=== PATIENT | male | born 1965 | race Caucasian/White ===

== ENCOUNTER 2020-08-28 14:04 | Observation (INO) ==
--- NOTE | 2020-08-28 14:30 | Emergency Department Note ---
Impression & Plan Atypical chest pain, Alcohol abuse ED Provider Note NAME: KATIANA MAYA JR AGE: 55 SEX: M : 1965 ARRIVES VIA: Ambulance INFORMANT: Patient, ED PROVIDER(S): Varinder Purdy MD Chief Complaint: Chest pain HPI: Patient did present with concern for chest pain and epigastric discomfort. The patient states he awoke at 6 AM this morning and had some epigastric discomfort had taken a Prilosec went back to bed. The patient subsequently got up took some Pepto-Bismol as he had some persistent discomfort. The patient states that this only mildly improved his symptoms and that he was getting to play golf and the patient did have diffuse chest tightness with associated nausea. The patient was picked up by EMS and given aspirin nitro in route. Patient states that this did improve his symptoms. Patient recently had 10 of 10 pain and now does feel fatigued and is currently 0 out of 10. Patient denies any fevers chills. The patient denies any active chest pains or shortness of breath. The patient denies any nausea or vomiting currently. Patient does endorse drinking 7-10 beers daily. No family history of heart attack or stroke in parents siblings before the age of 65. Patient is a non-smoker. No history of DVT or PE and the patient does not complain of any lower extremity swelling or infectious symptoms. Patient is not vaccinated for Covid. ROS: See HPI for pertinent positives and negatives. A total of 10 systems were reviewed and otherwise negative. Past medical history: See below Surgical history: See below Social history: See below Physical Exam: GENERAL: Wearing a mask. NAD, non-toxic. EYE EXAM: Normal conjunctiva. PERRL, no anisocoria and EOM's grossly intact w/o pain. NECK: Supple, no nuchal rigidity, no adenopathy, non-tender. No signs of meningismus. LUNGS: Clear to auscultation. Normal chest wall mechanics. HEART: NSR, no MRG. ABDOMEN: Abdomen soft, non-tender, normo-active bowel sounds, no masses, no rebound or guarding. BACK: No CVA TTP. SKIN: No rashes and no bruising. UPPER EXTREMITIES: Upper extremities are grossly normal. LOWER EXTREMITIES: Grossly normal, no edema. Negative Homans' sign bilaterally. NEURO EXAM: A&O x3, cranial nerves II-XII grossly intact, normal speech, moves all 4 extremities on command w/o issue. Differential diagnoses: Cardiac ischemia, aortic dissection, pulmonary embolism, pneumothorax, pneumonia, pericarditis, myocarditis, esophageal rupture, GERD, cholecystitis, pancreatitis, musculoskeletal, as well as other pathologies. Course: Patient was seen and evaluated the bedside. Full history physical exam was performed. EKG interpreted by me Normal sinus rhythm, rate of 61, normal intervals, normal axis, T wave inversion lead III, no ST elevations Imaging Studies: See below Cardiac monitoring: An order was placed for continuous cardiac monitoring. The monitor shows a rate of 78 with sinus rhythm. MDM: Patient did present with concerns for atypical chest pain. The patient did have chest discomfort associated diaphoresis and nausea. The patient did have improvement in symptoms after nitro and aspirin were given in route. The patient does not have any pain only current discomfort. Initially 10 out of 10. After further discussion with the patient the patient was hesitant to be admitted to the hospital given the concern for Covid although the patient does not want to be vaccinated. After discussing that it may be of benefit to get vaccinated if this is a concern he stated "I will take my chances." But after further discussion with the patient the patient is amenable for further evaluation and treatment. I did speak the on-call hospitalist and the patient was admitted by Dr. Azevedo. Patient was ordered a one-time dose of Ativan as the patient was having some mild tachycardia given the patient's chronic alcohol use this was to be used to avoid withdrawal type symptoms. 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 Beliefs That Will Affect Care: None Current Living Situation: Family Other Information That Helps Us Care for You: No Feels Safe at Home: Yes Safety Concerns: Feels Safe At This Time Assistive Devices: Glasses Allergies Allergies Allergy/AdvReac Type Severity Reaction Status Date / Time acetaminophen [From Tylenol] AdvReac Unknown Hives Verified 08/28/20 15:17 Home Meds Home Medications Medication Instructions Recorded Confirmed lisinopril 5 mg tablet 10 mg PO QAM 04/14/19 08/28/20 omeprazole magnesium 20 mg 20 mg PO DAILY PRN 08/28/20 08/28/20 tablet,delayed release (Prilosec OTC) Results & Data (ED) Vital Signs Vital Signs - 24 hr 08/28/20 14:15 08/28/20 14:17 08/28/20 14:30 Temperature 36.8 C Temperature Source Oral Pulse Rate 80 82 74 Pulse Rate from SpO2 Sensor 82 74 Respiratory Rate 18 20 17 Blood Pressure 141/89 H 141/89 H 130/88 Blood Pressure Mean 106 106 102 Pulse Oximetry 98 97 96 Oxygen Delivery Method Room Air Sepsis Recent Fever Within 48 Hours No Sepsis New/Unexplained Change in Mental Status No Sepsis Action Taken by Nursing No Action Required 08/28/20 15:00 08/28/20 15:09 08/28/20 16:00 Temperature Temperature Source Pulse Rate 82 79 Pulse Rate from SpO2 Sensor 83 88 Respiratory Rate 19 21 Blood Pressure 138/100 138/94 Blood Pressure Mean 112 108 Pulse Oximetry 97 98 98 Oxygen Delivery Method Room Air Sepsis Recent Fever Within 48 Hours Sepsis New/Unexplained Change in Mental Status Sepsis Action Taken by Nursing 08/28/20 16:30 08/28/20 17:00 08/28/20 17:30 Temperature Temperature Source Pulse Rate 78 80 101 H Pulse Rate from SpO2 Sensor 77 82 98 H Respiratory Rate 20 20 20 Blood Pressure 140/87 137/96 153/100 H Blood Pressure Mean 104 109 117 Pulse Oximetry 98 98 98 Oxygen Delivery Method Sepsis Recent Fever Within 48 Hours Sepsis New/Unexplained Change in Mental Status Sepsis Action Taken by Assisted Medications Current Medication List: was personally reviewed by me Laboratory Data Attestation: I reviewed the patient's lab results. Result diagrams: 08/28/20 13:43 08/28/20 13:43 Lab Results 08/28/20 08/28/20 08/28/20 Range/Units 13:43 13:43 15:02 WBC 5.68 (4.8-10.8) K/uL RBC 4.76 (4.7-6.1) M/uL Hgb 16.2 (14.0-18.0) g/dL Hct 45.7 (42-52) % MCV 96.0 (80-100) fL MCH 34.0 (25-34) pg MCHC 35.4 (32-36) g/dL RDW Std Deviation 43.1 (36.4-46.3) fL RDW Coeff of Kevon 12.2 (11.5-14.5) % Plt Count 257 (130-400) K/uL MPV 12.0 H (7.4-10.4) fL Immature Gran % (Auto) 0.4 % Neut % (Auto) 61.6 % Lymph % (Auto) 27.6 % Dewitt % (Auto) 8.6 % Eos % (Auto) 1.6 % Baso % (Auto) 0.2 % Neut # (Auto) 3.50 (1.4-6.5) K/uL Lymph # (Auto) 1.57 (1.2-3.4) K/uL Dewitt # (Auto) 0.49 (0.11-0.59) K/uL Eos # (Auto) 0.09 (0-0.5) K/uL Baso # (Auto) 0.01 (0-0.2) K/uL Immature Gran # (Auto) 0.02 (0.00-0.02) K/uL APTT (21.0-31.0) Seconds PTT Ratio Sodium 140 (136-145) mmol/L Potassium 4.4 (3.5-5.1) mmol/L Chloride 105 (98-107) mmol/L Carbon Dioxide 24 (21-32) mmol/L Anion Gap 11.0 (3-11) BUN 12 (7-18) mg/dl Creatinine 1.01 (0.6-1.4) mg/dl Est Cr Clr Drug Dosing 84.4 ml/min Est GFR ( Amer) 95.3 ml/min Est GFR (Non-Af Amer) 82.2 ml/min BUN/Creatinine Ratio 12.3 (10-20) Glucose 119 H (70-99) mg/dl Calcium 9.2 (8.5-10.1) mg/dl Total Bilirubin 0.4 (0.2-1) mg/dl AST 52 H (15-37) U/L ALT 91 H (12-78) U/L Alkaline Phosphatase 94 (45-117) U/L Troponin I < 0.015 (0-0.045) ng/ml Total Protein 8.1 (6.4-8.2) gm/dl Albumin 3.8 (3.4-5.0) gm/dl Globulin 4.3 H (2.5-4.0) gm/dl Albumin/Globulin Ratio 0.9 (0.9-2) Lipase 257 (73-393) U/L COVID-19 Eval Order Covid19 at [facility] SARS-CoV-2 (PCR) (Negative) 08/28/20 08/28/20 Range/Units 15:02 15:36 WBC (4.8-10.8) K/uL RBC (4.7-6.1) M/uL Hgb (14.0-18.0) g/dL Hct (42-52) % MCV (80-100) fL MCH (25-34) pg MCHC (32-36) g/dL RDW Std Deviation (36.4-46.3) fL RDW Coeff of Kevon (11.5-14.5) % Plt Count (130-400) K/uL MPV (7.4-10.4) fL Immature Gran % (Auto) % Neut % (Auto) % Lymph % (Auto) % Dewitt % (Auto) % Eos % (Auto) % Baso % (Auto) % Neut # (Auto) (1.4-6.5) K/uL Lymph # (Auto) (1.2-3.4) K/uL Dewitt # (Auto) (0.11-0.59) K/uL Eos # (Auto) (0-0.5) K/uL Baso # (Auto) (0-0.2) K/uL Immature Gran # (Auto) (0.00-0.02) K/uL APTT 28.8 (21.0-31.0) Seconds PTT Ratio 1.1 Sodium (136-145) mmol/L Potassium (3.5-5.1) mmol/L Chloride (98-107) mmol/L Carbon Dioxide (21-32) mmol/L Anion Gap (3-11) BUN (7-18) mg/dl Creatinine (0.6-1.4) mg/dl Est Cr Clr Drug Dosing ml/min Est GFR ( Amer) ml/min Est GFR (Non-Af Amer) ml/min BUN/Creatinine Ratio (10-20) Glucose (70-99) mg/dl Calcium (8.5-10.1) mg/dl Total Bilirubin (0.2-1) mg/dl AST (15-37) U/L ALT (12-78) U/L Alkaline Phosphatase (45-117) U/L Troponin I (0-0.045) ng/ml Total Protein (6.4-8.2) gm/dl Albumin (3.4-5.0) gm/dl Globulin (2.5-4.0) gm/dl Albumin/Globulin Ratio (0.9-2) Lipase (73-393) U/L COVID-19 Eval Order SARS-CoV-2 (PCR) NEGATIVE (Negative) Administered Medications Discontinued Medications Sodium Chloride (Nss) 500 mls @ 999 mls/hr IV .Q31M STA Stop: 08/28/20 15:25 Last Infusion: 08/28/20 16:19 Dose: 0 mls/hr Documented by: [id number] Admin: 08/28/20 15:46 Dose: 999 mls/hr Documented by: [id number] Lorazepam (Ativan) 1 mg in 2 mls @ 2 mls/min IV NOW STA Stop: 08/28/20 17:51 Last Admin: 08/28/20 18:15 Dose: 2 mls/min Documented by: [id number] Nitroglycerin (Nitroglycerin Sl 0.4 Mg/Tab Tab) Confirm Administered Dose 0.4 mg .ROUTE .STK-MED ONE Stop: 08/28/20 18:14 Last Admin: 08/28/20 18:14 Dose: 0.4 mg Documented by: [id number] Imaging Data Radiologist's Impression: Chest X-Ray 08/28/20 14:55 XR chest 1V portable CLINICAL HISTORY: Chest Pain COMPARISON STUDY: Chest radiograph August 22, 2014. FINDINGS: Lung volumes are normal. Lungs are clear. There is no pneumothorax or pleural effusion. Cardiac size is at the upper limits of normal. Mediastinal contours are normal. There is no evidence for pulmonary edema. IMPRESSION: No acute cardiopulmonary findings. ACT 112: Negative or not required by law. Electronically signed by: Roberto Ayers M.D. 08/28/2020 3:52 PM Discharge Plan Visit Data Chief Complaint: Chest Pain ED Provider: Varinder Purdy Discharge Problem: Atypical chest pain, Alcohol abuse Patient Disposition: Admitted As Inpatient Discharge Instructions Interventions: ED Discharge Assessment Last Done: 08/28/20 19:38
[2020-08-28] MEDS ORDERED: SODIUM CHLORIDE 0.9% 500 ML IV STA (14:55)
[2020-08-28 15:13] LABS: Basophils # (auto) 0.01 K/uL (0-0.2); Basophils % (auto) 0.2 %; Eosinophils # (auto) 0.09 K/uL (0-0.5); Eosinophils % (auto) 1.6 %; Hematocrit (blood only) 45.7 % (42-52); Hemoglobin 16.2 g/dL (14.0-18.0); Immature Granulocytes # (auto) 0.02 K/uL (0.00-0.02); Immature Granulocytes % (auto) 0.4 %; Lymphocytes # (auto) 1.57 K/uL (1.2-3.4); Lymphocytes % (auto) 27.6 %; Mean Corpuscular Hgb Conc 35.4 g/dL (32-36); Monocytes # (auto) 0.49 K/uL (0.11-0.59); Monocytes % (auto) 8.6 %; Neutrophils % (auto) 61.6 %; Platelet Count 257 K/uL (130-400); RDW Coefficient of Variation 12.2 % (11.5-14.5); RDW Standard Deviation 43.1 fL (36.4-46.3); Red Blood Count 4.76 M/uL (4.7-6.1); White Blood Count 5.68 K/uL (4.8-10.8)
[2020-08-28 15:42] LABS: Alanine Aminotransferase 91 U/L (12-78); Albumin Level 3.8 gm/dl (3.4-5.0); Aspartate Aminotransferase 52 U/L (15-37); BUN Creatinine Ratio 12.3 (10-20); Blood Urea Nitrogen 12 mg/dl (7-18); Calcium 9.2 mg/dl (8.5-10.1); Carbon Dioxide 24 mmol/L (21-32); Chloride 105 mmol/L (98-107); Creatinine Clr Calc Pharmacy 84.4 ml/min; Est GFR (African American) 95.3 ml/min; Est GFR (Non-African American) 82.2 ml/min; Glucose 119 mg/dl (70-99); Lipase 257 U/L (73-393); Potassium 4.4 mmol/L (3.5-5.1); Sodium 140 mmol/L (136-145)
[2020-08-28 15:47] LABS: Albumin Globulin Ratio 0.9 (0.9-2); Alkaline Phosphatase 94 U/L (45-117); Bilirubin,Total 0.4 mg/dl (0.2-1); Globulin 4.3 gm/dl (2.5-4.0); Total Protein 8.1 gm/dl (6.4-8.2); Troponin I < 0.015 ng/ml (0-0.045)
--- NOTE | 2020-08-28 15:53 | XRay Report ---
XR chest 1V portable CLINICAL HISTORY: Chest Pain COMPARISON STUDY: Chest radiograph August 22, 2014. FINDINGS: Lung volumes are normal. Lungs are clear. There is no pneumothorax or pleural effusion. Car diac size is at the upper limits of normal. Mediastinal contours are normal. There is no evidence for pulmonary edema. IMPRESSION: No acute cardiopulmonary findings. ACT 112: Negative or not required by law. Electronically signed by: Roberto Ayers M.D. 08/28/2020 3:52 PM
[2020-08-28 16:06] LABS: Partial Thromboplastin Ratio 1.1; Partial Thromboplastin Time 28.8 Seconds (21.0-31.0)
[2020-08-28] MEDS ORDERED: LORazepam 1 MG/2 ML VIAL IV STA (17:50)
[2020-08-28] MEDS ORDERED: ACETAMINOPHEN 325 MG TAB PO PRN (18:00)
[2020-08-28] MEDS ORDERED: NITROGLYCERIN SL 0.4 MG/TAB TAB SL PRN (18:00)
--- NOTE | 2020-08-28 18:00 | History & Physical Report ---
Date of Service August 28, 2020 Assessment & Plan (1) Atypical chest pain: Plan: Patient comes in with atypical chest pain. Will have patient perform an echocardiogram exercise indued stress test will monitor trop. (2) Alcohol abuse: Plan: Patient drinks daily 7-10 beers Anticipate short hospital stay, will hold CIWA and loraxepam sliding scale. History of Present Illness Chief Complaint: CHEST PAIN Primary Care Provider: Omkar Mcqueen, DO 55 yo male comes into the ER for feeling of intermittent pressure like midsternum and epigastirc chest pain. Patient woke up this morning with epigastric pain at 6 am, prilosec did not help nor did peptobismol. Later in the day, he felt moderate to severe chest tightness while playing golf. When the ambulance arrived, he felt the oxygen and morphine helped. He also noticed that nitro helped. No family history of heart attack or stroke in parents siblings before the age of 65. Patient is a non-smoker. Patient is not vaccinated for Covid. Allergies Allergy/AdvReac Type Severity Reaction Status Date / Time acetaminophen [From Tylenol] AdvReac Unknown Hives Verified 08/28/20 15:17 Home Medications Medication Instructions Recorded Confirmed Type lisinopril 5 mg tablet 10 mg PO QAM 04/14/19 08/28/20 History omeprazole magnesium 20 mg 20 mg PO DAILY PRN 08/28/20 08/28/20 History tablet,delayed release (Prilosec OTC) Past Med/Surg History Medical History Afib Electrocution HTN (hypertension) Surgical History No pertinent past surgical history Social History Smoking Status: Never smoker Hx Alcohol Use: Yes Alcohol type: beer Hx Substance Use: No Preferred Language: Yoruba Communication Ability: Effective End Maker Required: No Beliefs That Will Affect Care: None Current Living Situation: Family Other Information That Helps Us Care for You: No Feels Safe at Home: Yes Safety Concerns: Feels Safe At This Time Assistive Devices: Glasses Review of Systems Constitutional: no fever and no sweats Eyes: no blind spots and no diplopia Ear, Nose, Mouth, Throat: no ear trauma and no hyperacusis Respiratory: no change in sputum Cardiovascular: + chest pain and + chest pain with activity Gastrointestinal: no bloating and no nausea Genitourinary: no urinary frequency Musculoskeletal: no radicular pain Integumentary: no rash and no non-healing lesions Neurologic: no falls Psychiatric: no hopelessness Endocrine: no polydipsia Hematologic / Lymphatic: no easy bleeding Allergy / Immunological: no lip swelling Physical Exam Constitutional: WD/WN, vitals as above Eyes: PERRL, conjunctivae normal, anicteric sclerae ENMT: external ear and nose normal, oropharynx normal Neck: trachea midline, no thyromegaly Respiratory: normal respiratory effort, lungs clear to auscultation Cardiovascular: RRR, no murmur, no edema Gastrointestinal (Abdomen): normal bowel sounds, soft, nontender, no hepatosplenomegaly Musculoskeletal: no cyanosis or clubbing, extremities motor strength 5/5 Skin: no rashes, warm and dry Neurologic: PERRL, EOMI, accommodation nl, no face palsy, no dysarthria Psychiatric: A+Ox3, euthymic affect Results & Data Results & Data ([facility]) Vital Signs (Past 12 Hours) Vital Signs Temp Pulse Resp BP Pulse Ox 08/28/20 17:30 101 H 20 153/100 H 98 08/28/20 17:00 80 20 137/96 98 08/28/20 16:30 78 20 140/87 98 08/28/20 16:00 79 21 138/94 98 08/28/20 15:09 98 08/28/20 15:00 82 19 138/100 97 08/28/20 14:30 74 17 130/88 96 08/28/20 14:17 82 20 141/89 H 97 08/28/20 14:15 36.8 C 80 18 141/89 H 98 PG Care Time/CCT Total # of Minutes Spent Total Time Spent with Patient: Total time spent is greater than 50% in coordination of care (as documented) at patient's floor/unit and/or counseling patient: Coding Level of Care Code INT OBSERVATION CARE 70M LVL 3 Diagnoses Atypical chest pain R07.89 Alcohol abuse F10.10 Time Spent (min) 55
[2020-08-28] MEDS ORDERED: NITROGLYCERIN SL 0.4 MG/TAB TAB ONE (18:13)
[2020-08-29 06:22] LABS: Basophils # (auto) 0.02 K/uL (0-0.2); Basophils % (auto) 0.3 %; Eosinophils % (auto) 2.8 %; Hematocrit (blood only) 42.6 % (42-52); Immature Granulocytes # (auto) 0.03 K/uL (0.00-0.02); Immature Granulocytes % (auto) 0.4 %; Lymphocytes # (auto) 2.18 K/uL (1.2-3.4); Lymphocytes % (auto) 30.5 %; Mean Corpuscular Hemoglobin 33.6 pg (25-34); Mean Corpuscular Hgb Conc 35.2 g/dL (32-36); Mean Corpuscular Volume 95.3 fL (80-100); Mean Platelet Volume 11.1 fL (7.4-10.4); Monocytes # (auto) 0.65 K/uL (0.11-0.59); Monocytes % (auto) 9.1 %; Neutrophils # (auto) 4.06 K/uL (1.4-6.5); Neutrophils % (auto) 56.9 %; Platelet Count 227 K/uL (130-400); RDW Coefficient of Variation 12.3 % (11.5-14.5); RDW Standard Deviation 42.6 fL (36.4-46.3); Red Blood Count 4.47 M/uL (4.7-6.1); White Blood Count 7.14 K/uL (4.8-10.8)
[2020-08-29 06:54] LABS: Albumin Level 3.2 gm/dl (3.4-5.0); BUN Creatinine Ratio 14.3 (10-20); Creatinine Clr Calc Pharmacy 85.9 ml/min; Est GFR (African American) 96.4 ml/min; Est GFR (Non-African American) 83.2 ml/min
[2020-08-29 06:58] LABS: Albumin Globulin Ratio 0.9 (0.9-2); Bilirubin Direct 0.2 mg/dl (0-0.2); Bilirubin,Total 0.8 mg/dl (0.2-1); Globulin 3.7 gm/dl (2.5-4.0); Total Protein 6.9 gm/dl (6.4-8.2)
[2020-08-29] MEDS ORDERED: ASPIRIN 81 MG ECTAB PO SCH (09:00)
[2020-08-29] MEDS ORDERED: FAMOTIDINE 20 MG TAB PO SCH (10:15)
--- NOTE | 2020-08-29 12:20 | Discharge Summary ---
Date of Service August 29, 2020 Admission HPI Per Admitting Provider 55 yo male comes into the ER for feeling of intermittent pressure like midsternum and epigastirc chest pain. Patient woke up this morning with epigastric pain at 6 am, prilosec did not help nor did peptobismol. Later in the day, he felt moderate to severe chest tightness while playing golf. When the ambulance arrived, he felt the oxygen and morphine helped. He also noticed that nitro helped. No family history of heart attack or stroke in parents siblings before the age of 65. Patient is a non-smoker. Patient is not vaccinated for Covid. Admission Exam Per Admitting Provider Constitutional: WD/WN, vitals as above Eyes: PERRL, conjunctivae normal, anicteric sclerae ENMT: external ear and nose normal, oropharynx normal Neck: trachea midline, no thyromegaly Respiratory: normal respiratory effort, lungs clear to auscultation Cardiovascular: RRR, no murmur, no edema Gastrointestinal (Abdomen): normal bowel sounds, soft, nontender, no hepatosplenomegaly Musculoskeletal: no cyanosis or clubbing, extremities motor strength 5/5 Skin: no rashes, warm and dry Neurologic: PERRL, EOMI, accommodation nl, no face palsy, no dysarthria Psychiatric: A+Ox3, euthymic affect Principal Diagnosis Atypical Chest Pain (suspected gastritis and reflux) Discharge Exam Constitutional WD/WN, vitals as above ENMT external ear and nose normal, oropharynx normal Neck trachea midline, no thyromegaly Respiratory normal respiratory effort, lungs clear to auscultation Cardiovascular RRR, no murmur, no edema Gastrointestinal (Abdomen) normal bowel sounds, soft, nontender, no hepatosplenomegaly Discharge Data Allergies Allergy/AdvReac Type Severity Reaction Status Date / Time acetaminophen [From Tylenol] AdvReac Unknown Hives Verified 08/28/20 15:17 Consultations 08/28/20 17:50 ED Decision to Admit Stat Hospital Course (1) Atypical chest pain: (2) Alcohol abuse: Mitesh Hart is a 55 year old male observed at [facility] from August 28-2020 due to chest and abdominal pain. Serial troponins ruled out myocardial infarction. Stress echocardiogram was negative for in ducible ischemia making cardiovascular disease unlikely.. Lipase was normal. Given history described suspect this is most likely gastritis and reflux. Recommended taking famotidine (Pepcid) regularly for the next few days. Avoid reflux exacerbating foods such as spicy or acidic meals. He was also noted to have alcohol abuse disorder but has made efforts to decrease his alcohol intake. He was advised to continue to decrease his alcohol intake slowly to avoid alcohol withdrawals. Incidentally his lab work suggests alcoholic liver disease with AST > ALT and recommend following up with your primary care physician regarding this. Total Time Total Time Spent Total Time Spent (In Minutes): 40 Total Time Includes: Examination of the Patient, Discharge Planning and Medication Reconciliation Discharge Plan Discharge Items Patient Disposition: Home - Self-Care Reason For Visit: CHEST PAIN Discharge Diagnosis: Atypical Chest Pain (suspected gastritis and reflux) Activity: Resume your previous activity Non-emergency contact: Primary Care Provider Call non-emergency contact if: you have any medication questions and your symptoms worsen Follow-up/Referrals: Varun Ellington PA-C [Outside Practitioners] - 09/05/20 8:30 am Diet: Regular Addtl Attending Provider Instructions: You were observed at [facility] from August 28-2020 due to chest and abdominal pain. Serial troponins ruled out a heart attack. Stress echocardiogram was negative for inducible ischemia making this unlikely coming from your heart. Lipase was normal essentially ruling out pancreatitis. Given your history described suspect this is most likely gastritis and reflux. Recommend taking famotidine (Pepcid) regularly for the next few days. Avoid reflux exacerbating foods such as spicy or acidic meals. Continue to decrease your alcohol intake slowly. Avoid sudden discontinuation due to risk of alcohol withdrawal. Your lab work suggest alcoholic liver disease and recommend following up with your primary care physician regarding this. Kind regards, Dr Manfred Robles Pending Studies at Discharge: No Stand-Alone Forms: My [facility], Smoking Cessation Medications and DC Order Prescriptions: Continued lisinopril 5 mg Tablet 10 mg PO QAM RF: 0 omeprazole magnesium [Prilosec OTC] 20 mg Tablet,Delayed Release (Dr/Ec) 20 mg PO DAILY PRN (Reason: Acid Reflux) RF: 0 Discharge Orders: Discharge Order (Routine); Ordered 08/29/20 Ordered By: Manfred Arredondo/Other Patient Handouts: Alcoholism: Myths and Facts, GERD Dc, Warning Signs of a Heart Attack Admission Data Admit Date/Time: 08/28/20 18:00 Attending Provider: Manfred Robles Admit Provider: Bob Azevedo Primary Care Provider: Omkar Mcqueen Other Interventions: Discharge Summary Assessment (RN) Last Done: 08/29/20 12:22 Coding Level of Care Code 96834 OBS Care - Discharge Diagnoses Atypical chest pain R07.89 Alcohol abuse F10.10
--- NOTE | 2020-08-29 12:20 | XCELERA ---
[id number]
--- NOTE | 2020-08-29 13:13 | Electrocardiogram Report ---
Test Reason : Blood Pressure : / mmHG Vent. Rate : 078 BPM Atrial Rate : 078 BPM P-R Int : 136 ms QRS Dur : 084 ms QT Int : 384 ms P-R-T Axes : 062 027 022 degrees QTc Int : 437 ms Poor data quality, interpretation may be adversely affected Normal sinus rhythm Normal ECG When compared with ECG of 14-APR-2019 16:30, No significant change was found Confirmed by Endy Bui ([id number]) on 08/29/2020 1:13:11 PM Referred By: REFERRED SELF Confirmed By:Endy Bui
== END 2020-08-29 13:41 | disposition home or self-care (01) ==
LOC: 2S 14:04 → ED 14:04 → SUATTDRO 18:00 → 2S 19:38
DX: Z20.822 Contact with and (suspected) exposure to COVID-19; R07.89 Other chest pain; Z79.899 Other long term (current) drug therapy; Z88.6 Allergy status to analgesic agent; I10 Essential (primary) hypertension